=== PATIENT | female | born 1995 | race African-American/Black ===

== ENCOUNTER 2017-11-15 18:38 | Emergency (ER) | payer SELFPAY ==
--- NOTE | 2017-11-15 19:23 | EDM.PDOC ---
ED HPI GENERAL MEDICAL PROBLEM - General Chief Complaint: ENT Problem Stated Complaint: sore throat headache fever Time Seen by Provider: 11/15/17 19:05 Source of Information: Reports: Patient History Limitations: Reports: No Limitations - History of Present Illness INITIAL COMMENTS - FREE TEXT/NARRATIVE: The patient states that she has had a sore throat since yesterday, and has difficulty swallowing this morning. She has had a headache and bilateral ear pain since this morning, and a subjective fever, in that she felt hot this afternoon. No cough. No nausea or emesis. No prior similar symptoms. The patient take 2 tablets of [id number] ibuprofen this morning and again at 16:00 this afternoon. The patient does not have a PCP. Throat Pain Score (Numeric/FACES): 10 - Related Data Allergies Allergy/AdvReac Type Severity Reaction Status Date / Time No Known Allergies Allergy Verified 11/15/17 18:46 Home Meds: Home Meds . [No Known Home Meds] 11/15/17 [History] Past Medical History - Past Health History Medical/Surgical History: Denies Medical/Surgical History Social & Family History - Tobacco Use Smoking Status *Q: Never Smoker - Caffeine Use Caffeine Use: Reports: None - Alcohol Use Alcohol Use History: No - Recreational Drug Use Recreational Drug Use: No - Living Situation & Occupation Living situation: Reports: Single, with Family Occupation: Employed (Caregiver) ED ROS ENT - Review of Systems Review Of Systems: ROS reveals no pertinent complaints other than HPI. ED EXAM, ENT - Physical Exam Exam: See Below Exam Limited By: No Limitations General Appearance: Alert, WD/WN, No Apparent Distress Eye Exam: Bilateral Eye: Normal Inspection Ears: Normal External Exam, Normal Canal, Hearing Grossly Normal, Normal TMs Nose: Normal Inspection, Normal Mucousa, No Blood Mouth/Throat: Normal Inspection, Normal Gums, Normal Lips, Normal Oropharynx ( no erythema or swelling), Normal Teeth Head: Atraumatic, Normocephalic Neck: Normal Inspection, Supple, Non-Tender, Full Range of Motion. No: Lymphadenopathy (L), Lymphadenopathy (R) Course - Vital Signs Last Recorded V/S: Last Vital Signs Temp 36.9 C 11/15/17 20:15 Pulse 75 11/15/17 20:15 Resp 12 11/15/17 20:15 BP 109/69 11/15/17 20:15 Pulse Ox 100 11/15/17 20:15 - Orders/Labs/Meds Orders: Active Orders 24 hr Category Date Time Status CULTURE STREP A CONFIRMATION [] Stat Lab 11/15/17 18:50 Results STREP SCRN A RAPID W CULT CONF [] Stat Lab 11/15/17 18:50 Results - Re-Assessments/Exams Free Text/Narrative Re-Assessment/Exam: 11/15/17 19:21 The patient's physical exam is benign. No suggestion of peritonsillar cellulitis or abscess. Her Rapid Strep test has returned negative. The patient 's pharyngitis appears to be viral. Departure - Departure Time of Disposition: 19:22 Disposition: Home, Self-Care 01 Condition: Good Clinical Impression: Viral pharyngitis - Discharge Information Instructions: Pharyngitis, [id number] Referrals: PCP,None [Primary Care Provider] - Hansa Hong MD [Physician] - Forms: ED Department Discharge Additional Instructions: You were seen in the emergency room for a sore throat, headache, ear pain, and feeling hot. Workup in the ER included a rapid strep test, which returned negative. You do not have strep throat. The cause of your symptoms is MOST LIKELY due to viral pharyngitis. Take [id number] Tylenol or ibuprofen as needed for discomfort. Consider also trying warm salt water gargles and Chloraseptic spray. If your symptoms persist beyond a few days, please follow-up with Dr. Hansa Hong in the clinic. If any other problems, please do not hesitate to return to the ER.
[2017-11-15 20:26] VITALS: BP 109/69
== END 2017-11-15 20:15 | disposition home or self-care (01) ==
LOC: JD.ED 18:38
DX: J02.9 Acute pharyngitis, unspecified (principal)
CPT/HCPCS: 87081; 87430; 99282; 99283

== ENCOUNTER 2018-10-08 11:44 | Emergency (ER) | payer SELFPAY ==
[2018-10-08 11:54] VITALS: BP 132/86
--- NOTE | 2018-10-08 14:23 | EDM.PDOC ---
ED HPI GENERAL MEDICAL PROBLEM - General Chief Complaint: Back Pain or Injury Stated Complaint: THORACIC PAIN FROM OLD ACCIDENT Time Seen by Provider: 10/08/18 12:16 Source of Information: Reports: Patient History Limitations: Reports: No Limitations - History of Present Illness INITIAL COMMENTS - FREE TEXT/NARRATIVE: 23-year-old female presents for evaluation and treatment of upper back pain. Patient reports about 4 months she tripped and fell backwards hitting her upper back against the fridge. She reports that she had pain for about 2 days but it then improved. She states now over the last couple months she is having pain significantly worse to that area. She reports the pain travels to her into her chest and epigastric area. she reports when the pain comes on she experiences headaches and fevers. States she had a temperature of 101 on Thursday and Thursday. She is reporting chest pain, shortness of breath with exertion, epigastric pain and weight loss. She denies any cough, nausea or vomiting. She denies any night sweats. Reports she has been having trouble with constipation. No diarrhea. She has been taking Tylenol and Motrin for the pain which seems to help it only lasts briefly. Reports movement seems to worsen the pain. No worsening with eating. patient denies any recent travel. Denies any other recent trauma to the area. LMP was the end of August. Middle Back Pain Score (Numeric/FACES): 6 - Related Data Allergies Allergy/AdvReac Type Severity Reaction Status Date / Time No Known Allergies Allergy Verified 10/08/18 11:51 Home Meds: Home Meds Naproxen 500 mg PO BID PRN #20 mckayla. 10/08/18 [Rx] Orphenadrine [Norflex] 100 mg PO BID PRN #20 tab 10/08/18 [Rx] Past Medical History - Past Health History Medical/Surgical History: Denies Medical/Surgical History Neurological History: Reports: Migraines - Past Surgical History Neurological Surgical History: Reports: None Social & Family History - Family History Family Medical History: Noncontributory - Tobacco Use Smoking Status *Q: Never Smoker - Caffeine Use Caffeine Use: Reports: None - Recreational Drug Use Recreational Drug Use: No - Living Situation & Occupation Living situation: Reports: Single, with Family Occupation: Employed (Caregiver) ED ROS GENERAL - Review of Systems Review Of Systems: See Below Constitutional: Reports: Fever, Chills, Weight Loss. Denies: Decreased Appetite Respiratory: Reports: Shortness of Breath, Pleuritic Chest Pain Cardiovascular: Reports: Chest Pain GI/Abdominal: Reports: Abdominal Pain (epigastric), Constipation. Denies: Diarrhea, Nausea, Vomiting : Reports: No Symptoms Musculoskeletal: Reports: Back Pain Neurological: Reports: Headache ED EXAM, UPPER BACK/NECK PAIN - Physical Exam Exam: See Below Exam Limited By: No Limitations General Appearance: Alert, WD/WN, No Apparent Distress, Anxious, Thin Ears Exam: Normal External Exam Nose Exam: Normal Inspection Throat/Mouth Exam: Normal Inspection, Normal Lips, Normal Voice, No Airway Compromise Neck Exam: Non-Tender, Full Range of Motion, Normal Alignment, Normal Inspection Cardiovascular/Respiratory: Regular Rate, Rhythm, No M/R/G, Normal Peripheral Pulses GI/Abdominal: Normal Bowel Sounds, Soft, Tender (epigastric and upper quadrants) Back Exam: Normal Inspection, Vertebral Tenderness (T4-T8). No: Paraspinal Tenderness Neurologic: Alert, Normal Mood/Affect Psychiatric: Normal Affect, Normal Mood Skin Exam: Normal Color, Warm/Dry Course - Vital Signs Last Recorded V/S: Last Vital Signs Temp 97.5 F 10/08/18 11:51 Pulse 87 10/08/18 11:51 Resp 18 10/08/18 11:51 BP 132/86 10/08/18 11:51 Pulse Ox 100 10/08/18 11:51 - Orders/Labs/Meds Labs: Laboratory Tests 10/08/18 10/08/18 10/08/18 Range/Units 13:00 13:00 13:00 WBC 6.22 (3.98-10.04) K/mm3 RBC 4.83 (3.98-5.22) M/mm3 Hgb 12.7 (11.2-15.7) gm/L Hct 39.0 (34.1-44.9) % MCV 80.7 (79.4-94.8) fl MCH 26.3 (25.6-32.2) pg MCHC 32.6 (32.2-35.5) g/dl RDW Std Deviation 41.1 (36.4-46.3) fL Plt Count 251 (182-369) K/mm3 MPV 11.3 (9.4-12.3) fl Neutrophils % (Manual) 31 L (40-60) % Band Neutrophils % 0 (0-10) % Lymphocytes % (Manual) 67 H (20-40) % Atypical Lymphs % 0 % Monocytes % (Manual) 2 (2-10) % Eosinophils % (Manual) 0 L (0.7-5.8) % Basophils % (Manual) 0 L (0.1-1.2) Platelet Estimate Adequate RBC Morph Comment Normal D-Dimer, Quantitative < 0.19 L (0.19-0.50) mg/L Sodium 142 (136-145) mEq/L Potassium 3.4 L (3.5-5.1) mEq/L Chloride 107 (98-107) mEq/L Carbon Dioxide 24 (21-32) mEq/L Anion Gap 14.4 (5-15) BUN 12 (7-18) mg/dL Creatinine 1.1 H (0.55-1.02) mg/dL Est Cr Clr Drug Dosing 65.50 mL/min Estimated GFR (MDRD) > 60 (>60) mL/min BUN/Creatinine Ratio 10.9 L (14-18) Glucose 90 (74-106) mg/dL Calcium 8.9 (8.5-10.1) mg/dL Total Bilirubin 0.4 (0.2-1.0) mg/dL AST 52 H (15-37) U/L ALT 26 (14-59) U/L Alkaline Phosphatase 52 (46-116) U/L C-Reactive Protein 0.2 (<1.0) mg/dL Total Protein 8.3 H (6.4-8.2) g/dl Albumin 3.8 (3.4-5.0) g/dl Globulin 4.5 gm/dL Albumin/Globulin Ratio 0.8 L (1-2) Lipase 219 (73-393) U/L Urine Color (Yellow) Urine Appearance (Clear) Urine pH (5.0-8.0) Ur Specific [place] (1.005-1.030) Urine Protein (Negative) Urine Glucose (UA) (Negative) Urine Ketones (Negative) Urine Occult Blood (Negative) Urine Nitrite (Negative) Urine Bilirubin (Negative) Urine Urobilinogen (0.2-1.0) Ur Leukocyte Esterase (Negative) Urine RBC (0-5) /hpf Urine WBC (0-5) /hpf Ur Epithelial Cells (0-5) /hpf Urine Bacteria (FEW) /hpf Urine Mucus (FEW) /hpf Urine HCG, Qual (NEGATIVE) 10/08/18 10/08/18 Range/Units 13:44 13:44 WBC (3.98-10.04) K/mm3 RBC (3.98-5.22) M/mm3 Hgb (11.2-15.7) gm/L Hct (34.1-44.9) % MCV (79.4-94.8) fl MCH (25.6-32.2) pg MCHC (32.2-35.5) g/dl RDW Std Deviation (36.4-46.3) fL Plt Count (182-369) K/mm3 MPV (9.4-12.3) fl Neutrophils % (Manual) (40-60) % Band Neutrophils % (0-10) % Lymphocytes % (Manual) (20-40) % Atypical Lymphs % % Monocytes % (Manual) (2-10) % Eosinophils % (Manual) (0.7-5.8) % Basophils % (Manual) (0.1-1.2) Platelet Estimate RBC Morph Comment D-Dimer, Quantitative (0.19-0.50) mg/L Sodium (136-145) mEq/L Potassium (3.5-5.1) mEq/L Chloride (98-107) mEq/L Carbon Dioxide (21-32) mEq/L Anion Gap (5-15) BUN (7-18) mg/dL Creatinine (0.55-1.02) mg/dL Est Cr Clr Drug Dosing mL/min Estimated GFR (MDRD) (>60) mL/min BUN/Creatinine Ratio (14-18) Glucose (74-106) mg/dL Calcium (8.5-10.1) mg/dL Total Bilirubin (0.2-1.0) mg/dL AST (15-37) U/L ALT (14-59) U/L Alkaline Phosphatase (46-116) U/L C-Reactive Protein (<1.0) mg/dL Total Protein (6.4-8.2) g/dl Albumin (3.4-5.0) g/dl Globulin gm/dL Albumin/Globulin Ratio (1-2) Lipase (73-393) U/L Urine Color Light yellow (Yellow) Urine Appearance Clear (Clear) Urine pH 7.0 (5.0-8.0) Ur Specific [place] 1.020 (1.005-1.030) Urine Protein Negative (Negative) Urine Glucose (UA) Negative (Negative) Urine Ketones Negative (Negative) Urine Occult Blood Negative (Negative) Urine Nitrite Negative (Negative) Urine Bilirubin Negative (Negative) Urine Urobilinogen 1.0 (0.2-1.0) Ur Leukocyte Esterase Negative (Negative) Urine RBC 0-5 (0-5) /hpf Urine WBC 0-5 (0-5) /hpf Ur Epithelial Cells 0-5 (0-5) /hpf Urine Bacteria Few (FEW) /hpf Urine Mucus Not seen (FEW) /hpf Urine HCG, Qual Negative (NEGATIVE) - Radiology Interpretation Free Text/Narrative:: Thoracic spine: AP, lateral and swimmer's views of thoracic spine were obtained. Comparison: No prior thoracic spine study. Minimal scoliosis is noted. Vertebral body heights and disc spaces are maintained. Pedicles are intact. No subluxation or fracture is seen. Impression: 1. Slight scoliosis. Three-view thoracic spine study is otherwise unremarkable. Chest: Two views of the chest were obtained. Comparison: Prior chest x-ray of 10/11/15. Heart size and mediastinum are normal. Lungs are clear. Bony structures are unremarkable. Impression: 1. Nothing acute is seen on two-view chest x-ray. - Re-Assessments/Exams Free Text/Narrative Re-Assessment/Exam: 10/08/18 15:24 Reviewed the labs and imaging with the patient. I will try her on some norflex and follow-up in the clinic. Discharge instructions as documented. Departure - Departure Time of Disposition: 15:30 Disposition: Home, Self-Care 01 Condition: Good Clinical Impression: Back pain - Discharge Information *PRESCRIPTION DRUG MONITORING PROGRAM REVIEWED*: No *COPY OF PRESCRIPTION DRUG MONITORING REPORT IN PATIENT ESTELITA: No () Prescriptions: Naproxen 500 mg PO BID PRN #20 tablet.dr KHANN Reason: Pain Orphenadrine [Norflex] 100 mg PO BID PRN #20 tab PRN Reason: Muscle Spasm Instructions: Back Pain, Adult Referrals: PCP,None [Primary Care Provider] - Laxmi Wagner PA-C [Physician [employer] Train Operator] - Forms: ED Department Discharge Additional Instructions: Take the naproxen as prescribed. 1 tab twice daily as needed for pain. may take [id number] Tylenol as needed for additional pain relief. Do not take more than 4 g of Tylenol from all sources in 1 day. Norflex 1 tab twice a day as needed for muscle spasms. This medication and make you drowsy, do not drive or operate machinery until your know how this medication will affect you. Recommend using heat to the back for additional pain relief. You may also try topical products such as icy hot or Ben[place]. Consider seeing a massage therapist or chiropractor if you so chooses to. If your symptoms have not improved much within 2 weeks follow-up with family medicine. Recommend Laxmi Wagner or Julia Lamb at [facility]. Call [phone] to schedule wit on these providers. Please return to ER if your symptoms change or worsen.
--- NOTE | 2018-10-08 15:34 | CR ---
Thoracic spine: AP, lateral and swimmer's views of thoracic spine were obtained. Comparison: No prior thoracic spine study. Minimal scoliosis is noted. Vertebral body heights and disc spaces are maintained. Pedicles are intact. No subluxation or fracture is seen. Impression: 1. Slight scoliosis. Three-view thoracic spine study is otherwise unremarkable. Diagnostic code #2
--- NOTE | 2018-10-08 15:34 | CR ---
Chest: Two views of the chest were obtained. Comparison: Prior chest x-ray of 10/11/15. Heart size and mediastinum are normal. Lungs are clear. Bony structures are unremarkable. Impression: 1. Nothing acute is seen on two-view chest x-ray. Diagnostic code #1
== END 2018-10-08 15:40 | disposition home or self-care (01) ==
LOC: JD.ED 11:44
DX: M54.6 Pain in thoracic spine (principal); W01.0XXA Fall on same level from slipping, tripping and stumbling without subsequent striking against object, initial encounter
CPT/HCPCS: 36415; 71046; 71046-26; 72070; 72070-26; 80053; 81001; 81025; 83690; 85007; 85027; 85379; 86140; 99284

== ENCOUNTER 2022-08-14 02:07 | Emergency (ER) | payer SELFPAY ==
[2022-08-14 03:20] VITALS: BP 123/80; PULSE 102
[2022-08-14] MEDS ORDERED: cefTRIAXone 1 GM, Lidocaine 1% 2.1 ML IM ONE ×2 (04:05)
== END 2022-08-14 04:50 | disposition home or self-care (01) ==
LOC: JD.ED 02:07
DX: L02.415 Cutaneous abscess of right lower limb (principal); L02.416 Cutaneous abscess of left lower limb; L03.115 Cellulitis of right lower limb; L03.116 Cellulitis of left lower limb; Z86.16 Personal history of COVID-19; Z88.8 Allergy status to other drugs, medicaments and biological substances
CPT/HCPCS: 96372; 99283; J0696